=== PATIENT | female | born 1945 ===

== ENCOUNTER 2017-09-19 07:32 | Outpatient (CLI) | payer OTHER ==
[~2017-09-19] VITALS: Ht 154.9 cm; Wt 93.9 kg
== END 2017-09-19 07:45 | disposition home or self-care (01) ==
LOC: OFIC 805 07:32
DX: J31.0 Chronic rhinitis (principal); H93.13 Tinnitus, bilateral; H61.23 Impacted cerumen, bilateral; D10.1 Benign neoplasm of tongue

== ENCOUNTER 2017-11-07 07:43 | Outpatient (CLI) | payer OTHER ==
[~2017-11-07] VITALS: Ht 152.4 cm; Wt 93.9 kg
== END 2017-11-07 08:00 | disposition home or self-care (01) ==
LOC: OFIC 805 07:43
DX: J31.0 Chronic rhinitis (principal); H93.13 Tinnitus, bilateral; H90.3 Sensorineural hearing loss, bilateral

== ENCOUNTER 2021-11-12 22:04 | Emergency (ER) | payer OTHER ==
[~2021-11-12] VITALS: Ht 154.9 cm; Wt 83.5 kg
[2021-11-12] MEDS ORDERED: LIPITOR (22:36)
[2021-11-12] MEDS ORDERED: ASPIRINA (22:36)
[2021-11-12] MEDS ORDERED: METFORMIN (22:37)
[2021-11-12] MEDS ORDERED: AVALIDE (22:37)
== END 2021-11-12 23:54 | disposition home or self-care (01) ==
LOC: ER 22:04
DX: S69.92XA Unspecified injury of left wrist, hand and finger(s), initial encounter (principal); V49.9XXA Car occupant (driver) (passenger) injured in unspecified traffic accident, initial encounter; Y93.9 Activity, unspecified; Y92.410 Unspecified street and highway as the place of occurrence of the external cause; Y99.9 Unspecified external cause status; E11.9 Type 2 diabetes mellitus without complications; I10 Essential (primary) hypertension; Z88.8 Allergy status to other drugs, medicaments and biological substances